=== PATIENT | female | born 1960 | race Caucasian/White ===

== ENCOUNTER 2023-09-20 16:59 | Emergency (ER) | payer MEDICARE, OTHER, SELFPAY ==
[2023-09-20 17:00] VITALS: BMI 22.3
[2023-09-20 17:07] VITALS: BP 113/70
[2023-09-20 17:28] LABS: % Basophils 0.3 % (0-2); % Immature Granulocytes 0.3 % (0-0.5); % Lymphocytes 4.2 % (20.5-51.1); % Monocytes 7.8 % (1.7-9.3); % Neutrophils 87.4 % (42.2-75.2); Absolute Lymphocytes 0.5 10^3/uL (1.2-3.4); Absolute Monocytes 0.9 10^3/uL (0.1-0.6); Absolute Neutrophils 10.1 10^3/uL (1.4-6.5); Hematocrit 36.6 % (37.0-47.0); Hemoglobin 12.5 g/dL (12.0-16.0); Mean Corp Hgb Conc. 34.2 g/dL (33.0-37.0); Mean Corpuscular Hgb 30.6 pg (27.0-31.0); Mean Corpuscular Volume 89.7 fL (81.0-99.0); Mean Platelet Volume 9.2 fL (7.4-10.4); Nucleated Red Blood Cells % 0 %; Platelet Count 280 10^3/uL (130-400); Red Blood Cell Count 4.08 10^6/uL (4.20-5.40); Red Cell Dist. Width 14.2 % (11.5-14.5); White Blood Cell Count 11.6 10^3/uL (4.8-10.8)
[2023-09-20 17:52] LABS: ALT (SGPT) 22 U/L (0-35); AST (SGOT) 25 U/L (14-36); Albumin 4.3 g/dl (3.5-5.0); Alkaline Phosphatase 57 U/L (38-126); Blood Urea Nitrogen 15 mg/dl (7-17); Calcium 9.3 mg/dl (8.4-10.2); Carbon Dioxide 22 mmol/L (22-30); Chloride 101 mmol/L (98-107); Glucose 134 mg/dl (70-99); Lipase 48 U/L (23-300); Potassium 3.6 mmol/L (3.5-5.1); Sodium 130 mmol/L (135-145); Total Bilirubin 1.2 mg/dl (0.2-1.3); Total Protein 6.8 g/dl (6.3-8.2); eGFR > 60.00
[2023-09-20 19:38] VITALS: BP 109/58
[2023-09-20] MEDS: NSS 1000 IV (19:39)
[2023-09-20] MEDS: ZOFRAN 4 MG IV (19:39)
[2023-09-20 19:40] VITALS: BP 107/59
--- NOTE | 2023-09-20 19:40 | ED.GENMED ---
History of Present Illness
General
Chief Complaint: Abdominal Pain
Time Seen by Provider: 09/20/23 18:34
Travel History
Have you had any contact with someone who has COVID-19?: No
Do you have any symptoms of coronavirus? Fever > 100 degrees, chills, cough, shortness of breath, sore throat, loss of taste or smell, muscle aches, or headache?: No
History of Present Illness
History of Present Illness:
63-year-old female with no significant past medical history presents to the emergency department for evaluation of nausea and vomiting as well as lower abdominal cramping began last night but worsening today. She is unable to tolerate any fluids
today. Does report tactile fevers and chills, no hematemesis or hematochezia. He did have a regular bowel movement today. No history of intra-abdominal surgery.
Review of Systems
Review of Systems
Allergies reviewed?: Yes
All Other Systems: ROS reviewed and negative except as documented in HPI and ROS
Phy Exam
Physical Exam
Physical Exam:
GEN: Well appearing, NAD, WDWN
HEENT: Oral mucosa moist, no scleral icterus
Cardiac: Regular rate
Lung: No respiratory distress, no tachypnea
Abdomen: Soft, diffusely tender to all 4 quadrants without focality, rigidity or peritoneal signs
MSK: No gross deformity or injuries
Skin: Good color, no pallor or jaundice, no rashes
Neuro: AO x3, moves all extremities freely
Psych: Calm, cooperative
Course
Orders/Labs/Results
Orders:
Orders
09/20/23 17:18
Complete Blood Count/With Diff Urgent
Comprehensive Metabolic Panel Urgent
Lipase Urgent
09/20/23 19:23
0.9% Sodium Chloride 1000 ml [Nss] 1,000 ml IV BOLUS
Ondansetron Injectable [Zofran] 4 mg IV NOW STA
09/20/23 21:11
Ketorolac [Toradol] 15 mg IV NOW STA
Abnormal Lab Results
09/20/23
17:18
WBC 11.6 H 10^3/uL
(4.8-10.8)
RBC 4.08 L 10^6/uL
(4.20-5.40)
Hct 36.6 L %
(37.0-47.0)
Absolute Neuts (auto) 10.1 H 10^3/uL
(1.4-6.5)
Absolute Lymphs (auto) 0.5 L 10^3/uL
(1.2-3.4)
Absolute Monos (auto) 0.9 H 10^3/uL
(0.1-0.6)
Neutrophils % 87.4 H %
(42.2-75.2)
Lymphocytes % 4.2 L %
(20.5-51.1)
Sodium 130 L mmol/L
(135-145)
Creatinine 0.5 L mg/dL
(0.6-1.0)
Glucose 134 H mg/dl
(70-99)
09/20/23 17:18
09/20/23 17:18
Vital Signs
Initial and Last Documented VS:
Initial Vital Signs
Temp Pulse Resp BP Pulse Ox
98.9 F 89 18 113/70 97
09/20/23 17:07 09/20/23 17:07 09/20/23 17:07 09/20/23 17:07 09/20/23 17:07
Last Documented Vital Signs
Temp Pulse Resp BP Pulse Ox
99.9 F 89 18 114/59 99
09/20/23 19:35 09/20/23 17:07 09/20/23 17:07 09/20/23 21:00 09/20/23 21:15
MDM/Problems Addressed
MDM/Problems Addressed:
Abdominal exam is not suggestive of acute surgical pathology. Likely acute self-limited viral syndrome. Patient was given IV fluids and antiemetics and was able to tolerate p.o. fluids without difficulty. Her pain did improve with
anti-inflammatories. Do not feel there is any indication for CT at this time. Discussed supportive care and return parameters
*Critical Care Note
Total Time (30-74mins, 75-104mins- exclusive of procedures): Not Applicable
ED Attending Note
-
Portions of this chart may have been created with voice recognition software.� Occasional wrong word or��sound alike� substitutions may have occurred due to the inherent limitations of voice recognition software.
Discharge Plan
Departure
Patient Disposition: Home (Routine Discharge)
Date of Disposition: 09/20/23
Time of Disposition: 22:04
Patient with high blood pressure during this ER visit?: No
Discharge Problem:
Nausea and vomiting
Instructions: Nausea and Vomiting, Adult (DC)
Prescriptions:
New
ondansetron 4 mg tablet,disintegrating
4 mg PO TIDPRN PRN (Reason: nausea/vomiting) Qty: 10 0RF
Referrals:
Yair Mata, [Family Provider] -
Activity Restrictions/Additional Instructions:
If your pain worsens, especially if nausea and vomiting is improving, return to the ER for re-evaluation
Interventions
Interventions:
*Risk Screen - Suicide Last Done: 09/20/23 17:07
*General Assessment Last Done: 09/20/23 17:07
*Neglect/Abuse Screening Last Done: 09/20/23 17:07
ED- Fall Risk Assessment Last Done: 09/20/23 19:22
*ED COVID-19 Vaccine History Last Done: 09/20/23 17:07
*Nursing Disposition Last Done: 09/20/23 22:13
PU-Bohfid-Mcasimlizj Assessment Last Done: 09/20/23 19:22
Discharge Date and Time
Discharge Date/Time: 09/20/23 22:14
Print Language: BERMUDIAN
[2023-09-20 20:00] VITALS: BP 118/64
[2023-09-20 21:00] VITALS: BP 114/59
[2023-09-20] MEDS: TORADOL 15 MG IV (21:21)
== END 2023-09-20 22:14 | disposition home or self-care (01) ==
LOC: EMR 16:59
PROVIDERS: EMERGENCY PHYSICIAN Student in an Organized Health Care Education/Training Program; FAMILY PHYSICIAN Student in an Organized Health Care Education/Training Program
DX: R11.2 Nausea with vomiting, unspecified (principal); R10.30 Lower abdominal pain, unspecified; R50.9 Fever, unspecified
CPT/HCPCS: 99284; 96374; 96375; 96361; 80053; 83690; 85025

== ENCOUNTER 2023-09-22 10:11 | Inpatient (IN) | payer MEDICARE, OTHER, SELFPAY ==
[2023-09-21 13:42] VITALS: BP 107/58; BMI 24.6
[2023-09-21 14:12] LABS: Hematocrit 34.9 % (37.0-47.0); Hemoglobin 11.9 g/dL (12.0-16.0); Mean Corp Hgb Conc. 34.1 g/dL (33.0-37.0); Mean Corpuscular Hgb 30.1 pg (27.0-31.0); Mean Corpuscular Volume 88.4 fL (81.0-99.0); Mean Platelet Volume 9.3 fL (7.4-10.4); Nucleated Red Blood Cells % 0 %; Platelet Count 252 10^3/uL (130-400); Red Blood Cell Count 3.95 10^6/uL (4.20-5.40); Red Cell Dist. Width 14.6 % (11.5-14.5); Urine Albumin Trace (Neg - Trace); Urine Bilirubin Negative (Negative); Urine Character Slightly Cloudy (Clear); Urine Color Yellow; Urine Glucose Negative (Negative); Urine Ketone 2+ (Negative); Urine Leukocyte 2+ (Negative); Urine Nitrite Negative (Negative); Urine Occult Blood Trace (Negative); Urine Urobilinogen Negative (Neg - 1+); White Blood Cell Count 13.1 10^3/uL (4.8-10.8)
[2023-09-21 14:25] LABS: ALT (SGPT) 19 U/L (0-35); AST (SGOT) 24 U/L (14-36); Albumin 3.8 g/dl (3.5-5.0); Alkaline Phosphatase 50 U/L (38-126); Blood Urea Nitrogen 15 mg/dl (7-17); Calcium 8.9 mg/dl (8.4-10.2); Carbon Dioxide 25 mmol/L (22-30); Chloride 100 mmol/L (98-107); Estimated Creatinine Clearance 71 ml/min; Glucose 102 mg/dl (70-99); Lipase 39 U/L (23-300); Potassium 4.2 mmol/L (3.5-5.1); Sodium 129 mmol/L (135-145); Total Bilirubin 1.3 mg/dl (0.2-1.3); Total Protein 6.4 g/dl (6.3-8.2); eGFR > 60.00
[2023-09-21 14:26] LABS: Urine Bacteria Few (Negative); Urine Mucus Few; Urine White Cell 16-20 /HPF (0-5)
[2023-09-21 14:53] LABS: Absolute Neutrophils -Man Diff 11.3 10^3/uL (1.4-6.5); Band Neutrophils 14 % (0-3); Lymphocytes 10 % (20-51); Monocytes 3 % (2-9); Normal RBC Morphology Yes; Platelets Checked YES; Segmented Neutrophils 73 % (42-75)
[2023-09-21 14:54] LABS: Total Cells Counted 100
--- NOTE | 2023-09-21 15:58 | ED.GENMED ---
History of Present Illness
General
Chief Complaint: Abdominal Pain
Source: patient
Exam Limitations: none
Time Seen by Provider: 09/21/23 15:39
Nursing documentation reviewed up to this point in time: agreed with
Travel History
Have you had any contact with someone who has COVID-19?: No
Do you have any symptoms of coronavirus? Fever > 100 degrees, chills, cough, shortness of breath, sore throat, loss of taste or smell, muscle aches, or headache?: No
History of Present Illness
History of Present Illness:
Patient is a 63-year-old female who presents to the ER for evaluation. Patient started with nausea and dry heaves on night, 2 days ago and then yesterday vomited several times. She was seen here last night and had blood work and fluids
but comes back today complaining of continued pain. She complains of bloating and generalized diffuse abdominal pain she. She has been able to drink fluids today. She did move her bowels Saturday morning.
Review of Systems
Review of Systems
Allergies reviewed?: Yes
All Other Systems: ROS reviewed and negative except as documented in HPI and ROS
Constitutional: Reports no symptoms; Denies fever
Respiratory: Reports no symptoms
Cardiac: Reports no symptoms
ABD/GI: Reports abdominal pain and other (nausea and vomiting x2 d improved now )
: Reports no symptoms; Denies flank pain
Musculoskeletal: Reports no symptoms
Skin: Reports no symptoms
Neurological: Reports no symptoms
Hematologic/Lymphatic: Reports no symptoms
Psychiatric: Reports no symptoms
Phy Exam
General Physical Exam
General Presentation: no apparent distress
General age: appears stated age
General Skin: warm and dry
General Habitus: normal
General Mental: alert
Gastrointestinal Exam
Gastrointestinal Exam: soft and other (abd tender throughout generalized diffuse tenderness)
Neurological Exam
Neurological Exam: alert and oriented x3
[place] Coma Scale
Eye Opening: Spontaneous
Verbal Response: Oriented
Motor Response: Obeys Commands
GCS Total Score: 15
Musculoskeletal Exam
Musculoskeletal Exam: full ROM
Skin Exam
Skin Exam: normal color and warm/dry
Psychiatric Exam
Psychiatric Exam: normal mood/affect
Course
Orders/Labs/Results
Orders:
Orders
09/21/23 13:57
Complete Blood Count/With Diff Urgent
Comprehensive Metabolic Panel Urgent
Lipase Urgent
Manual Differential Urgent
Urinalysis Reflex To Culture Urgent
Date Specimen was Collected: 09/21/23
Time Specimen was Collected: 13:45
Urine Microscopic Reflex Cult Urgent
Urine Culture Urgent
GABRIELA Source: U
Specimen Description:
Date Specimen was Collected: 09/21/23
Time Specimen was Collected: 13:45
09/21/23 16:07
0.9% Sodium Chloride 1000 ml [Nss] 1,000 ml IV BOLUS
09/21/23 16:08
Iohexol [Omnipaque] See Protocol PO NOW STA
Ondansetron Injectable [Zofran] 4 mg IV NOW STA
09/21/23 16:09
CT Abd/pel W Iv And Oral Contr Urgent
Comment:
Reason For Exam: abd pain
09/21/23 17:21
Ketorolac [Toradol] 15 mg IV NOW STA
09/21/23 20:12
Piperacillin/Tazo 3.375 Gram [Zosyn] 3.375 gram in 50 ml IV NOW
Abnormal Lab Results
09/21/23
13:57
WBC 13.1 H 10^3/uL
(4.8-10.8)
RBC 3.95 L 10^6/uL
(4.20-5.40)
Hgb 11.9 L g/dL
(12.0-16.0)
Hct 34.9 L %
(37.0-47.0)
RDW 14.6 H %
(11.5-14.5)
Abs Neuts (Manual) 11.3 H 10^3/uL
(1.4-6.5)
Band Neutrophils 14 H %
(0-3)
Lymphocytes (Manual) 10 L %
(20-51)
Sodium 129 L mmol/L
(135-145)
Creatinine 0.5 L mg/dL
(0.6-1.0)
Glucose 102 H mg/dl
(70-99)
Urine Ketones 2+ A
(Negative)
Ur Occult Blood Reflex Trace A
(Negative)
Leukocyte Esterase Rfl 2+ A
(Negative)
Urine RBC 3-6 A /HPF
(0-2)
Urine WBC (Reflex) 16-20 A /HPF
(0-5)
Urine Bacteria (Reflex) Few A
(Negative)
09/21/23 13:57
09/21/23 13:57
Vital Signs
Initial and Last Documented VS:
Initial Vital Signs
Temp Pulse Resp BP Pulse Ox
100.1 F 95 16 107/58 98
09/21/23 13:42 09/21/23 13:42 09/21/23 13:42 09/21/23 13:42 09/21/23 13:42
Last Documented Vital Signs
Temp Pulse Resp BP Pulse Ox
100.1 F 95 16 107/58 98
09/21/23 13:42 09/21/23 13:42 09/21/23 13:42 09/21/23 13:42 09/21/23 13:42
MDM/Problems Addressed
Differential Diagnosis Includes:
Not limited to gastroenteritis obstruction diverticulitis appendicitis
MDM/Problems Addressed:
Patient is a 63-year-old female who presents to the ER for evaluation. She has had abdominal pain nausea vomiting since yesterday was seen here yesterday for nausea vomiting abdominal cramping discharged with nausea and vomiting. She reports the
nausea has improved but she continues to have abdominal pain. She has diffuse tenderness on exam denies any fever she is nontoxic-appearing CAT scan however does show acute appendicitis with no associated perforation or abscess this is secondary
associated distal ileitis with partial small bowel structure.
Patient takes Lexapro only no other medical history but does not have a family doctor and does not go for routine screenings. wbc 13.1 hemoglobin minimally low at 11.9 sodium low at 129.
Case discussed with surgery Dr. Bolton on ca will admit to his service.
*Radiology
Radiology exam reviewed: radiology read reviewed
*Pulse Oximetry
Patient hypoxic: no
*Critical Care Note
Total Time (30-74mins, 75-104mins- exclusive of procedures): Not Applicable
Data Reviewed
Review of Other/Old Records Reveals: Other (ED visit from yesterday )
ED Attending Note
-
Portions of this chart may have been created with voice recognition software.� Occasional wrong word or��sound alike� substitutions may have occurred due to the inherent limitations of voice recognition software.
Discharge Plan
Departure
Patient Disposition: Admit
Date of Disposition: 09/21/23
Time of Disposition: 20:08
Admit to: Med/Surg
Admit to doctor: Che
Presentation/result/management discussed w/ accepting MD/DO: surgery
Patient with high blood pressure during this ER visit?: No
Condition: Fair
Covid-19: Not Applicable
Discharge Problem:
Acute appendicitis, partial small bowel obstruction, Acute hyponatremia
Prescriptions:
No Action
ondansetron 4 mg tablet,disintegrating
4 mg PO TIDPRN PRN (Reason: nausea/vomiting) Qty: 10 0RF
Referrals:
Yair Mata, [Family Provider] -
Interventions
Interventions:
*Risk Screen - Suicide Last Done: 09/21/23 13:42
*General Assessment Last Done: 09/21/23 16:25
*Neglect/Abuse Screening Last Done: 09/21/23 13:42
ED- Fall Risk Assessment Last Done: 09/21/23 13:42
*ED COVID-19 Vaccine History Last Done: 09/21/23 13:42
WB-Mxqmze-Qmddprtxsq Assessment Last Done: 09/21/23 16:26
Discharge Date and Time
Print Language: NEPALI
[2023-09-21] MEDS: ZOFRAN 4 MG IV (16:21)
[2023-09-21] MEDS: NSS 1000 IV (16:21)
[2023-09-21] MEDS: OMNIPAQUE 50 ML PO (16:21)
[2023-09-21] MEDS: TORADOL 15 MG IV (17:27)
[2023-09-21 20:14] VITALS: BP 108/95
[2023-09-21] MEDS: ZOSYN 50 IV (20:16)
--- NOTE | 2023-09-21 20:59 | HPS.HSE ---
Addendum entered and electronically signed by Leland Bolton MD 09/22/23 07:34:
Patient seen and examined independently.
Patient is a 63 yo F with a PMH of depression/anxiety who presented to the hospital with persistent RLQ abdominal pain. She initially presented to the ER on (09/18) with similar more mild symptoms. Labs were normal at that time and she
was ultimately discharged with a diagnosis of 'nausea and vomiting'. Her symptoms persisted prompting 3 presentation to the ED. She reports severe RLQ abdominal pain. Associated nausea and vomiting. Associated low-grade fevers, no chills. She
reports some looser stools following her CT with contrast, but denies any other fluctuations in GI function or issues with urination. No personal or family history of IBD or colon cancer.
Gen: NAD
Abd: soft, tender in RLQ, distended, tympanitic, non-peritoneal
Labs and imaging were reviewed.
Patient is a 63 yo F p/w acute appendicitis.
The natural history and pathophysiology of appendicitis was discussed. Anatomy was reviewed. CT scan imaging as relates to her appendix and small bowel was reviewed. Options for management including medical management with antibiotics versus
surgical management with appendectomy were considered and discussed. The pros and cons of both approaches was discussed. Specifically, we discussed failure of medical management, future episodes of appendicitis, and risks of appendectomy.
Jam would like to proceed with surgery.
Plan for a laparoscopic appendectomy. The procedure itself, as well as the risks, benefits, and alternatives was discussed. Specifically, we discussed the risks of bleeding, infection, injury to surrounding structures (bowel, bladder), staple line
leak, need for lumbar operation. Typical postprocedural recovery was discussed. All questions answered. Consent signed.
-- Laparoscopic appendectomy
-- NPO, IVF
-- Antibiotics: Zosyn
-- Pain control: Tylenol, IV Dilaudid as needed
Original Note:
Family Physician
-
Family Physician: Yair Mata DO
Chief Complaint
-
abd pain, nausea/vomiting
History of Present Illness
Patient is a 63-year-old female with hx depression /anxiety who presents to the ER for evaluation for n/v and diffuse abd pain. Patient started with nausea and dry heaves on night, 2 days ago and then yesterday vomited several times. She
was seen here last night(sat) and had blood work and fluids but comes back today complaining of continued pain. She complains of bloating and generalized diffuse abdominal pain. She has been able to drink fluids today. She did move her bowels
Saturday morning normally.
While in room with pt she had 2 BM post contrast.
Abd CT scan: IMPRESSION:
1). Acute appendicitis without associated perforation or abscess
2). Secondary associated distal ileitis with partial small bowel obstruction
3). Edema in the mesentery, small volume free fluid in the pelvis and pericolonic inflammatory stranding in the sigmoid colon
WBC 13 with bandemia
NA 129 (130 last night)
Medical History
Past Medical History
Past Medical History: Reports Psychiatric (depression anxiety)
Past Surgical History: Reports Other (breast lump removal (benign))
Social History
Tobacco: Non-smoker
Alcohol: None
Drug: None
Personal: Single
Living: Alone
Family History
Family History: Not pertinent
Allergies / Home Medications
Allergies reflects when Allergies were last updated in [facility].
Home Medications with original date entered in [facility]
Allergy/Medication List:
Allergies
Allergy/AdvReac Type Severity Reaction Status Date / Time
No Known Allergies Allergy Verified 09/21/23 13:42
Home Medications
ondansetron 4 mg disintegrating tablet 4 mg PO TIDPRN PRN nausea/vomiting #10 tabs 09/20/23
lexapro 5 mg daily
Review of Systems
-
History Source: Patient
A 12 point ROS was completed and negative except as noted: Yes
Constitutional: Reports No Symptoms
EENT: Reports No Symptoms
Respiratory: Reports No Symptoms
Cardiac: Reports No Symptoms
Abdomen/GI: Reports Abdominal Pain (pain 5/10), Nausea and Vomiting
: Reports No Symptoms
Musculoskeletal: Reports No Symptoms
Skin: Reports No Symptoms
Endocrine: Reports No Symptoms
Hematologic/Lymphatic: Reports No Symptoms
Psych: Reports No Symptoms
Physical Exam
Vital Signs
Vital Signs
Temp Pulse Resp BP Pulse Ox
99.1 F 78 16 108/95 95
09/21/23 20:14 09/21/23 20:14 09/21/23 20:14 09/21/23 20:14 09/21/23 20:54
Physical Exam
General: Well Developed, Well Nourished, No Apparent Distress, Comfortable and Pain (pain 5/10)
HEENT: NormoCephalic, Moist mucous membranes and Good Dentition
Respiratory: Clear
Cardiac: S1/S2 and Regular Rhythm
Breast: Deferred by me
GI: Tender (diffuse abd pain, RLQ more tender) and Distended (moderately)
Rectal: Deferred by Provider
Genito-urinary: Deferred by me
Skin: Warm and Dry
Neuro: Awake, Oriented, AO x 3, No Motor Deficits and Nonfocal/grossly intact
Hematologic/Lymphatic: No Lymphadenopathy
Psych: Calm
Laboratory Results
-
09/21/23 13:57
09/21/23 13:57
Laboratory Results
Total Bilirubin 1.3 mg/dl (0.2-1.3) 09/21/23 13:57
AST 24 U/L (14-36) 09/21/23 13:57
ALT 19 U/L (0-35) 09/21/23 13:57
Alkaline Phosphatase 50 U/L (38-126) 09/21/23 13:57
Lipase 39 U/L (23-300) 09/21/23 13:57
Data Reviewed
-
CT Scan: Report Reviewed by me and Discussed with Physician
Lab Data: Discussed with Physician and Discussed with Patient
Impression/Plan
-
IMPRESSION:
Acute appendicitis w/o perforation
PLAN:
Admit to service of Dr Bolton
Med surg obs
#acute appendicitis w/o perforation or abscess
-CT abd also with ileitis and pSBO possibly due to inflammation of appendix
-Will keep NPO x few ice chips tonight then NPO x meds after midnight.
-cont zosyn iv q 6
-WBC 13 with bands--> cont to trend cbc
-pain control: tylenol, toradol, morphine prn
-nausea control
#hyponatremia (129)
-on lexapro (has not taken in 2 days)--> will continue to hold
-possibly from effects of SSRI vs dehydration (n/v x 2 days)
-NA 130 09/20/23--> baseline unknown
-cont to trend BMP
-consider fluid restriction when no longer NPO if NA remains low
DVT proph: scd for now
Full code
[2023-09-21 21:36] VITALS: BMI 26.3
[2023-09-21 21:44] VITALS: BP 118/58; BMI 25.8
[2023-09-21] MEDS: LR 1000 IV (21:51)
[2023-09-21] MEDS: MORPHINE SULFATE 2 MG IV (21:51)
[2023-09-22] VITALS (13 sets, daily range): BP systolic 93–113; BP diastolic 50–60
[2023-09-22] MEDS: ZOSYN 50 IV ×4 (02:20→20:11)
[2023-09-22] MEDS: TORADOL 15 MG IV (04:30)
[2023-09-22 05:57] LABS: % Basophils 0.4 % (0-2); % Eosinophils 0.1 % (0-6); % Immature Granulocytes 0.9 % (0-0.5); % Lymphocytes 3.6 % (20.5-51.1); % Monocytes 5.1 % (1.7-9.3); % Neutrophils 89.9 % (42.2-75.2); Absolute Basophils 0.1 10^3/uL (0-0.2); Absolute Immature Granulocytes 0.1 10^3/uL (0-0.05); Absolute Lymphocytes 0.5 10^3/uL (1.2-3.4); Absolute Monocytes 0.7 10^3/uL (0.1-0.6); Absolute Neutrophils 11.4 10^3/uL (1.4-6.5); Hematocrit 33.5 % (37.0-47.0); Hemoglobin 11.1 g/dL (12.0-16.0); Mean Corp Hgb Conc. 33.1 g/dL (33.0-37.0); Mean Corpuscular Hgb 30.4 pg (27.0-31.0); Mean Corpuscular Volume 91.8 fL (81.0-99.0); Mean Platelet Volume 9.3 fL (7.4-10.4); Nucleated Red Blood Cells % 0 %; Platelet Count 233 10^3/uL (130-400); Red Blood Cell Count 3.65 10^6/uL (4.20-5.40); Red Cell Dist. Width 14.6 % (11.5-14.5); White Blood Cell Count 12.7 10^3/uL (4.8-10.8)
[2023-09-22] MEDS: LR 1000 IV (06:12)
[2023-09-22 06:32] LABS: ALT (SGPT) 12 U/L (0-35); AST (SGOT) 19 U/L (14-36); Albumin 3.1 g/dl (3.5-5.0); Alkaline Phosphatase 66 U/L (38-126); Blood Urea Nitrogen 12 mg/dl (7-17); Calcium 9.1 mg/dl (8.4-10.2); Carbon Dioxide 19 mmol/L (22-30); Chloride 101 mmol/L (98-107); Estimated Creatinine Clearance 71 ml/min; Glucose 82 mg/dl (70-99); Potassium 3.1 mmol/L (3.5-5.1); Sodium 131 mmol/L (135-145); Total Bilirubin 1.1 mg/dl (0.2-1.3); Total Protein 5.5 g/dl (6.3-8.2); eGFR > 60.00
--- NOTE | 2023-09-22 06:40 | PTCARENOTE ---
Aprox 2134 last night pt arrived from ED. Pt able to ambulate into room unassisted. Pt admission and assessment done. Pt to be NPO after midnight with IVF/IV abx. Pt instructed to ring for assistance.
--- NOTE | 2023-09-22 07:34 | W.SUR.PREOP ---
Pre-Operative Surgical Note
-
I have examined this patient prior to the performance of the scheduled procedure.
The patient's condition is unchanged from the time of the current History and
Physical and the patient is able to undergo the scheduled procedure.
--- NOTE | 2023-09-22 09:49 | CM ---
Reviewed the chart notes. Patient scheduled for OR today for appendectomy. The patient resides alone in an independent apartment. The patient uses no DME/VN/SNF. CM continues to be available to patient/family and is monitoring medical plan for
needs at discharge.
Plan: Discharge to home when medically stable. No needs anticipated.
--- NOTE | 2023-09-22 10:15 | W.IMMPOSTOP ---
Addendum entered and electronically signed by Leland Bolton MD 09/22/23 10:25:
[facility]#[id number]
Original Note:
Surgical Immed Post Op Note
-
Primary Surgeon: Che
Assisting Surgeon: None
Pre-op Diagnosis: Acute appendicitis
Post-op Diagnosis: Acute appendicitis
Procedure Performed: Laparoscopic appendectomy
Anesthesia Type: General
Specimen / Cultures:
1. Appendix
Estimated Blood Loss: 7 cc
Complications: None
Operative Findings:
1. Severe perforated appendicitis with feculent and purulent contamination throughout abdomen
2. Base healthy taken with take load stapler, mesentery with Ligasure
3. Suction and local irrigation throughout the abdomen
4. 19 Fr Randy drain into pelvis and RIGHT colic gutter overlying stapler line
Plan:
-- NPO until ROBF, NGT if nausea or emesis
-- Abx for 10-14 days
[2023-09-22] MEDS: NSS 1000 IV ×2 (10:43→20:14)
[2023-09-22] MEDS: NSS (PRESERVATIVE FREE) 10 ML IV (11:28)
[2023-09-22] MEDS: PROTONIX IV 40 MG IV (11:28)
[2023-09-22] MEDS: ZOFRAN 4 MG IV (15:35)
[2023-09-22] MEDS: LOVENOX 40 MG SC (17:07)
--- NOTE | 2023-09-22 18:13 | PTCARENOTE ---
Received patient from PACU via bed around 1100 in stable condition. MORRO to llq with large amount of serous fluid. Denies pain. Call durham in reach.
[2023-09-23] MEDS: ZOSYN 50 IV ×4 (02:33→19:50)
[2023-09-23] MEDS: TORADOL 10 MG IV ×3 (03:00→17:48)
[2023-09-23 03:34] VITALS: BP 102/54
[2023-09-23 03:40] VITALS: BP 130/66
[2023-09-23] MEDS: NSS 1000 IV ×2 (04:55→15:39)
[2023-09-23 07:25] VITALS: BP 102/51
[2023-09-23 08:13] LABS: Hematocrit 31.5 % (37.0-47.0); Hemoglobin 10.7 g/dL (12.0-16.0); Mean Corpuscular Hgb 30.9 pg (27.0-31.0); Mean Platelet Volume 10.2 fL (7.4-10.4); Platelet Count 268 10^3/uL (130-400); Red Blood Cell Count 3.46 10^6/uL (4.20-5.40); Red Cell Dist. Width 15.1 % (11.5-14.5)
--- NOTE | 2023-09-23 08:17 | W.PN.GS2 ---
Addendum entered and electronically signed by Bernardo Gil MD 09/23/23 08:43:
I saw and examined the patient independently.
The resident's note was reviewed and I agree with the note, assessment and plan except where noted below.
Comment:
63-year-old female POD #1 status post laparoscopic appendectomy for perforated appendicitis. Expected ileus, otherwise doing well.
Okay for sips of clears, meds.
Continue IV fluids.
Continue antibiotics x 7 days.
Tylenol, Toradol, narcotics as needed.
Will trend labs.
MORRO to bulb suction.
SCDs, DVT prophylaxis, out of bed and ambulate.
Original Note:
Today's Communication / Plan
-
Continue antibiotics
Continue IV fluids
Clear liquids
Assessment / Plan
-
63-year-old female with no significant past medical history, underwent laparoscopic appendicectomy. Today is her postoperative day 1
#Acute appendicitis with perforation, s/p laparoscopic appendicectomy
POD #1
-Continue antibiotics, Zosyn�day 2
-Pain control-acetaminophen, Toradol as needed
-Trend WBC
-Monitor MORRO drain output
# Postoperative ileus
-Patient did not pass flatus
-On clear liquids, continue
-Continue IV fluids
# PPI prophylaxis with Protonix
#Zofran as needed
#DVT prophylaxis�SCDs
Subjective Data
-
Date of Service: September 23, 2023
Patient reports having diffuse abdominal pain, did not pass flatus. No acute overnight events. She reports having a bowel movement in the morning today passing contrast, loose stools, was continent. Reports having incontinent stools earlier. No
fever/chills, nausea, vomiting.
Objective Data
-
Intake and Output
09/22/23 09/23/23 09/24/23
06:59 06:59 06:59
Intake Total 2555 / 2555
Output Total 1580 / 1580
Balance 975 / 975
Intake:
IV fluids (Total) 2355 / 2355
normosol 75 / 75
IV piggybacks 200 / 200
Output:
Drain Output (Total) 430 / 430
Left Abdomen Peterson-Ye 430 / 430
Urine, Voided 1150 / 1150
Other:
Number of approximated MODERATE 1
amounts of urine
Vital Signs
Temp Pulse Resp BP Pulse Ox
98.0 F 64 17 102/51 95
09/23/23 07:25 09/23/23 07:25 09/23/23 07:25 09/23/23 07:25 09/23/23 07:25
Calcium 9.1 mg/dl (8.4-10.2) 09/22/23 05:41
Total Bilirubin 1.1 mg/dl (0.2-1.3) 09/22/23 05:41
AST 19 U/L (14-36) 09/22/23 05:41
ALT 12 U/L (0-35) 09/22/23 05:41
Alkaline Phosphatase 66 U/L (38-126) 09/22/23 05:41
Total Protein 5.5 g/dl (6.3-8.2) L 09/22/23 05:41
Albumin 3.1 g/dl (3.5-5.0) L 09/22/23 05:41
Physical Exam
-
General : Patient appears comfortable, in no acute distress
CVS: S1, S2 normal
Resp: CTAB
Abdomen: distended, diffusely tender, tympanitic, MORRO drain-serous fluid, incisional wounds-healing, nonerythematous, nonpurulent.
[2023-09-23] MEDS: PROTONIX IV 40 MG IV (08:22)
[2023-09-23] MEDS: NSS (PRESERVATIVE FREE) 10 ML IV (08:22)
[2023-09-23 08:59] LABS: Blood Urea Nitrogen 16 mg/dl (7-17); Calcium 8.3 mg/dl (8.4-10.2); Carbon Dioxide 18 mmol/L (22-30); Chloride 105 mmol/L (98-107); Estimated Creatinine Clearance 71 ml/min; Glucose 91 mg/dl (70-99); Potassium 3.4 mmol/L (3.5-5.1); Sodium 132 mmol/L (135-145); eGFR > 60.00
[2023-09-23 11:10] VITALS: BP 127/71
--- NOTE | 2023-09-23 14:27 | CM ---
POD #1, sips of clear liquids and for meds, drain. Anticipate discharge to home with no additional skilled services.
[2023-09-23] MEDS: LOVENOX 40 MG SC (17:50)
[2023-09-23] MEDS: ZOFRAN 4 MG IV (17:57)
[2023-09-23] MEDS: MORPHINE SULFATE 2 MG IV (21:28)
[2023-09-23 22:44] VITALS: BP 100/56
[2023-09-24] MEDS: NSS 1000 IV (00:26)
[2023-09-24] MEDS: ZOSYN 50 IV ×4 (02:14→20:07)
[2023-09-24] MEDS: MORPHINE SULFATE 2 MG IV (04:58)
[2023-09-24 06:22] LABS: Hematocrit 31.7 % (37.0-47.0); Hemoglobin 10.7 g/dL (12.0-16.0); Mean Corp Hgb Conc. 33.8 g/dL (33.0-37.0); Mean Corpuscular Hgb 30.2 pg (27.0-31.0); Mean Corpuscular Volume 89.5 fL (81.0-99.0); Mean Platelet Volume 9.8 fL (7.4-10.4); Platelet Count 310 10^3/uL (130-400); Red Blood Cell Count 3.54 10^6/uL (4.20-5.40); White Blood Cell Count 10.7 10^3/uL (4.8-10.8)
[2023-09-24 06:53] LABS: Blood Urea Nitrogen 18 mg/dl (7-17); Calcium 7.9 mg/dl (8.4-10.2); Carbon Dioxide 20 mmol/L (22-30); Chloride 107 mmol/L (98-107); Estimated Creatinine Clearance 71 ml/min; Glucose 74 mg/dl (70-99); Potassium 3.2 mmol/L (3.5-5.1); Sodium 134 mmol/L (135-145); eGFR > 60.00
[2023-09-24 07:00] VITALS: BP 104/55
--- NOTE | 2023-09-24 07:42 | W.PN.GS2 ---
Addendum entered and electronically signed by Leland Bolton MD 09/24/23 14:25:
CDI:
Hypokalemia
Original Note:
Today's Communication / Plan
-
-- Limited clears, NPO if nausea
-- mIVF with K replete and Mg check
Assessment / Plan
-
Patient is a 63 yo F POD#2 s/p laparoscopic appendicectomy
Recovering well. Expected ileus (presented with pSBO)
-- Limited clears, NPO if nausea
-- mIVF with K replete and Mg check
-- Pain control: Tylenol, Toradol, IV Morphine PRN
-- Abx: Zosyn (07/17)
-- Continue MORRO drain, can DC on DC if benign
-- OOB/ambulate
-- DVT: Lovenox
-- GI: Protonix
Subjective Data
-
Date of Service: September 24, 2023
Feels improved today. Less pain. Reports an episode of nausea with morphine administration, no vomiting, no reflux or burping. Reports passing flatus, no BM. Afebrile. Ambulating. Voiding.
Objective Data
-
Intake and Output
09/23/23 09/24/23 09/25/23
06:59 06:59 06:59
Intake Total 2555 / 2555 2890 / 2890
Output Total 1580 / 1580 1165 / 1165
Balance 975 / 975 1725 / 1725
Intake:
IV fluids (Total) 2355 / 2355 2740 / 2740
normosol 75 / 75
IV piggybacks 200 / 200 150 / 150
Output:
Drain Output (Total) 430 / 430 390 / 390
Left Abdomen Peterson-Ye 430 / 430 390 / 390
Urine, Voided 1150 / 1150 775 / 775
Other:
Number of approximated SMALL 1
amounts of urine
Vital Signs
Temp Pulse Resp BP Pulse Ox
98.1 F 72 16 100/56 95
09/23/23 22:44 09/23/23 22:44 09/23/23 22:44 09/23/23 22:44 09/23/23 22:44
Lab Results
09/24/23 05:02
09/24/23 05:02
Calcium 7.9 mg/dl (8.4-10.2) L 09/24/23 05:02
Total Bilirubin 1.1 mg/dl (0.2-1.3) 09/22/23 05:41
AST 19 U/L (14-36) 09/22/23 05:41
ALT 12 U/L (0-35) 09/22/23 05:41
Alkaline Phosphatase 66 U/L (38-126) 09/22/23 05:41
Total Protein 5.5 g/dl (6.3-8.2) L 09/22/23 05:41
Albumin 3.1 g/dl (3.5-5.0) L 09/22/23 05:41
Physical Exam
-
Gen: NAD
Abd: soft, mild tenderness, distended, tympanitic, non-peritoneal, incisions c/d/i - no erythema, ecchymosis or drainage, MORRO serous with fibrinous debris
[2023-09-24] MEDS: NSS IV (08:14)
[2023-09-24] MEDS: NSS (PRESERVATIVE FREE) 10 ML IV (08:16)
[2023-09-24] MEDS: PROTONIX IV 40 MG IV (08:16)
[2023-09-24] MEDS: D5/0.45%NSS with KCL 40 MEQ 1000 IV (08:58)
--- NOTE | 2023-09-24 12:40 | PN.CDI ---
CDI
- -
CDI:
Physician Documentation Request
Admit Date: 09/22/23 10:11
Dear Doctor Che,
Clinical Indicators:
Patient admitted with acute perforated appendicitis; s/p Laparoscopic appendectomy and drainage of intraabdominal abscess 09/21.
09/23 KCL 40 meq added to IVF.
Potassium levels:
09/22/23 09/23/23 09/24/23
05:41 06:45 05:02
Potassium 3.1 L D 3.4 L 3.2 L
Based on the above, could you clarify in the progress notes, the appropriate diagnosis, if significant, that supports the above abnormalities and additional evaluation, monitoring and/or treatment rendered:
Hypokalemia
Abnormal lab values, clinically insignificant
Other, please specify
Use of terms such as suspected, likely, concern for, or probable (associated with a specific diagnosis that is being evaluated, monitored, or treated as if it exists) are acceptable and can be coded in the inpatient setting, when documented at the
time of discharge.
Thank you,
JAMAR Hendrix RN
CDI Specialist
available via tiger text
Please use your independent medical judgment in providing your response.
[2023-09-24] MEDS: TORADOL 15 MG IV ×2 (12:43→20:40)
--- NOTE | 2023-09-24 14:30 | CM ---
CM reviewed chart
Pt on clears and lauri remains
Anticipate plan for drain removal upon dc
Per nursing notes, pt ambulatory in her room
Discharge Disposition- anticipate home, no needs
[2023-09-24 15:00] VITALS: BP 108/57
[2023-09-24] MEDS: LOVENOX 40 MG SC (18:07)
[2023-09-24 19:00] VITALS: BP 128/74
[2023-09-25] MEDS: D5/0.45%NSS with KCL 40 MEQ 1000 IV ×2 (00:41→16:58)
[2023-09-25] MEDS: ZOSYN 50 IV ×4 (01:01→19:15)
[2023-09-25] MEDS: TORADOL 15 MG IV ×3 (04:04→19:15)
[2023-09-25 07:05] LABS: Hematocrit 33.1 % (37.0-47.0); Hemoglobin 11.3 g/dL (12.0-16.0); Mean Corp Hgb Conc. 34.1 g/dL (33.0-37.0); Mean Corpuscular Hgb 30.9 pg (27.0-31.0); Mean Corpuscular Volume 90.4 fL (81.0-99.0); Mean Platelet Volume 9.5 fL (7.4-10.4); Platelet Count 282 10^3/uL (130-400); Red Blood Cell Count 3.66 10^6/uL (4.20-5.40); Red Cell Dist. Width 14.3 % (11.5-14.5); White Blood Cell Count 8.5 10^3/uL (4.8-10.8)
[2023-09-25 07:34] LABS: Blood Urea Nitrogen 11 mg/dl (7-17); Calcium 7.8 mg/dl (8.4-10.2); Carbon Dioxide 24 mmol/L (22-30); Chloride 105 mmol/L (98-107); Estimated Creatinine Clearance 71 ml/min; Glucose 130 mg/dl (70-99); Potassium 3.5 mmol/L (3.5-5.1); Sodium 133 mmol/L (135-145); eGFR > 60.00
[2023-09-25 08:00] VITALS: BP 121/65
[2023-09-25] MEDS: PROTONIX IV 40 MG IV (08:40)
[2023-09-25] MEDS: NSS (PRESERVATIVE FREE) 10 ML IV (08:41)
--- NOTE | 2023-09-25 09:15 | W.PN.GS2 ---
Today's Communication / Plan
-
Plain film.
Okay to shower.
Will check a UA given reported cloudy urine.
Assessment / Plan
-
Patient is a 63 yo F POD#3 s/p laparoscopic appendicectomy. Recovering well. Expected ileus (presented with pSBO)
-- Clears, will get a plain film today.
-- mIVF with K replete and Mg check
-- Pain control: Tylenol, Toradol, IV Morphine PRN
-- Abx: Zosyn (08/14)
-- Continue MORRO drain, can DC on DC if benign
-- OOB/ambulate
-- DVT: Lovenox
-- GI: Protonix
Time Spent
Total Time Spent with Patient (in minutes): 20
Subjective Data
-
Date of Service: September 25, 2023
Interval Events:
No acute events overnight. Slept well. Pain Controlled. Denies Nausea/Vomiting, endorses cloudy urine and some burping, +bowel function. Tolerating diet.
Objective Data
-
Intake and Output
09/24/23 09/25/23 09/26/23
06:59 06:59 06:59
Intake Total 2890 / 2890 1880 / 1880
Output Total 1165 / 1165 1440 / 1440
Balance 1725 / 1725 440 / 440
Intake:
Oral fluids 80 / 80
IV fluids (Total) 2740 / 2740 1600 / 1600
IV piggybacks 150 / 150 200 / 200
Output:
Drain Output (Total) 390 / 390 590 / 590
Left Abdomen Peterson-Ye 390 / 390 590 / 590
Urine, Voided 775 / 775 850 / 850
Other:
Number of approximated SMALL 1
amounts of urine
Vital Signs
Temp Pulse Resp BP Pulse Ox
98.7 F 76 17 121/65 96
09/25/23 08:00 09/25/23 08:00 09/25/23 08:00 09/25/23 08:00 09/25/23 08:00
Lab Results
09/25/23 06:08
09/25/23 06:09
Calcium 7.8 mg/dl (8.4-10.2) L 09/25/23 06:09
Magnesium Cancelled 09/24/23 07:40
Total Bilirubin 1.1 mg/dl (0.2-1.3) 09/22/23 05:41
AST 19 U/L (14-36) 09/22/23 05:41
ALT 12 U/L (0-35) 09/22/23 05:41
Alkaline Phosphatase 66 U/L (38-126) 09/22/23 05:41
Total Protein 5.5 g/dl (6.3-8.2) L 09/22/23 05:41
Albumin 3.1 g/dl (3.5-5.0) L 09/22/23 05:41
Physical Exam
-
GENERAL/NEURO: Awake, Alert, no distress
CHEST: Unlabored breathing on RA
ABDOMEN: Soft, appropriately tender, distended, incisions clean dry and intact, MORRO with serous output.
--- NOTE | 2023-09-25 12:37 | CM ---
Addendum entered by Samina Spence RN 09/25/23 15:51:
IMM signed and placed on the chart.
Original Note:
Reviewed the chart notes. Diet remains clears. Continues with MORRO drain. Per note, MORRO drain may be able to be removed at d/c is benign. CM continues to be available to patient/family and is monitoring medical plan for needs at discharge.
Plan: Discharge plans will depend on the patient's progress. If MORRO drain d/c'd no needs. If MORRO drain remains at d/c then may benefit from VN services.
[2023-09-25 13:49] LABS: Urine Albumin Negative (Neg - Trace); Urine Bilirubin Negative (Negative); Urine Character Clear (Clear); Urine Color Yellow; Urine Glucose Negative (Negative); Urine Ketone Negative (Negative); Urine Leukocyte Negative (Negative); Urine Nitrite Negative (Negative); Urine Occult Blood Negative (Negative); Urine Urobilinogen Negative (Neg - 1+)
[2023-09-25 15:55] VITALS: BP 126/64
[2023-09-25] MEDS: LOVENOX 40 MG SC (17:50)
[2023-09-25 23:30] VITALS: BP 112/60
[2023-09-26] MEDS: D5/0.45%NSS with KCL 40 MEQ 1000 IV ×3 (01:04→21:33)
[2023-09-26] MEDS: ZOSYN 50 IV ×4 (01:04→19:41)
[2023-09-26] MEDS: NSS (PRESERVATIVE FREE) 10 ML IV (08:42)
[2023-09-26] MEDS: PROTONIX IV 40 MG IV (08:42)
--- NOTE | 2023-09-26 09:06 | W.PN.GS2 ---
Addendum entered and electronically signed by Zach Jackson MD 09/26/23 09:17:
pt seen and examined with ANALYTICS ARCHITECT
pt reports persistent but stable abd distention/bloating
passing some flatus and occasional loose/liquid stools
AFVSS
ABD: distended, mild incisional tenderness
MORRO with mostly serous fluid
A/P: s/p lap appy
maintain IVF, clear liquid diet awaiting further return of post op GI function
Zosyn
MORRO
Original Note:
Today's Communication / Plan
-
Continue clears
OOB/Ambulate
Assessment / Plan
-
Patient is a 63 yo F POD#4 s/p laparoscopic appendicectomy. Recovering well. Resolving ileus (presented with pSBO)
AFVSS
-- Continue clears
-- Pain control: Tylenol, Toradol, IV Morphine PRN
-- Abx: Zosyn (08/14)
-- Continue MORRO drain, anticipate removal prior to discharge
-- OOB/ambulate
-- DVT ppx: Lovenox
-- GI ppx: Protonix
Subjective Data
-
Date of Service: September 26, 2023
Patient seen and examined at bedside with Dr. Jackson. Denies n/v. Distention persists. Notes that she passed liquid green stool today with flatus.
Objective Data
-
Intake and Output
09/25/23 09/26/23 09/27/23
06:59 06:59 06:59
Intake Total 1880 / 1880 2800 / 2800
Output Total 1440 / 1440 2480 / 2480
Balance 440 / 440 320 / 320
Intake:
Oral fluids 80 / 80 840 / 840
IV fluids (Total) 1600 / 1600 1760 / 1760
IV piggybacks 200 / 200 200 / 200
Output:
Drain Output (Total) 590 / 590 380 / 380
Left Abdomen Peterson-Ye 590 / 590 380 / 380
Urine, Voided 850 / 850 2100 / 2100
Vital Signs
Temp Pulse Resp BP Pulse Ox
98.2 F 79 16 112/60 94
09/25/23 23:30 09/25/23 23:30 09/25/23 23:30 09/25/23 23:30 09/25/23 23:30
Lab Results
09/25/23 06:08
09/25/23 06:09
Calcium 7.8 mg/dl (8.4-10.2) L 09/25/23 06:09
Magnesium Cancelled 09/24/23 07:40
Total Bilirubin 1.1 mg/dl (0.2-1.3) 09/22/23 05:41
AST 19 U/L (14-36) 09/22/23 05:41
ALT 12 U/L (0-35) 09/22/23 05:41
Alkaline Phosphatase 66 U/L (38-126) 09/22/23 05:41
Total Protein 5.5 g/dl (6.3-8.2) L 09/22/23 05:41
Albumin 3.1 g/dl (3.5-5.0) L 09/22/23 05:41
Physical Exam
-
GENERAL/NEURO: Awake, Alert, no distress
CHEST: Unlabored breathing on RA
ABDOMEN: Soft, appropriately tender, distended, incisions clean dry and intact, MORRO with serous output.
[2023-09-26] MEDS: TORADOL 15 MG IV ×2 (09:25→16:33)
--- NOTE | 2023-09-26 10:49 | CM ---
Reviewed the chart notes. Diet remains clears. Continues with MORRO drain. Per note, MORRO drain may be able to be removed at d/c is benign. CM continues to be available to patient/family and is monitoring medical plan for needs at discharge.
Plan: Discharge plans will depend on the patient's progress. If MORRO drain d/c'd no needs. If MORRO drain remains at d/c then may benefit from VN services.
[2023-09-26 15:54] VITALS: BP 122/74
[2023-09-26] MEDS: LOVENOX 40 MG SC (17:17)
[2023-09-26 23:45] VITALS: BP 112/61
[2023-09-27] MEDS: ZOSYN 50 IV ×2 (01:19→08:36)
[2023-09-27 08:03] VITALS: BP 119/73
[2023-09-27 08:25] VITALS: BMI 25.8
[2023-09-27] MEDS: D5/0.45%NSS with KCL 40 MEQ 1000 IV (08:35)
[2023-09-27] MEDS: NSS (PRESERVATIVE FREE) 10 ML IV (08:36)
[2023-09-27] MEDS: PROTONIX IV 40 MG IV (08:36)
[2023-09-27] MEDS: TYLENOL PO (10:42)
--- NOTE | 2023-09-27 12:17 | W.PN.GS2 ---
Addendum entered and electronically signed by Yan Celeste MD 09/27/23 12:37:
I saw and examined the patient.
The Pharmacy Technician Infusion's note was reviewed and I agree with the note.
Comment: Improving. C/o bloating/belching but drinking soda. Passing flatus. Denies n/v. Clint clears. Exam approp, incisions cdi, drain serous; Adv to LRD, OK for DC home when tolerating, can pull drain prior to DC
Original Note:
Today's Communication / Plan
-
Advance diet
Assessment / Plan
-
Patient is a 63 yo F POD#5 s/p laparoscopic appendicectomy for perforated appendicitis. Recovering well. Resolving ileus (presented with pSBO)
AFVSS
-- Trial on LRD and follow for tolerance
-- Pain control: Tylenol, Tramadol, IV Morphine PRN
-- Abx: Zosyn (10/14), will transition to PO agent upon d/c
-- Continue MORRO drain, anticipate removal prior to discharge
-- OOB/ambulate
-- Stop IVF
-- DVT ppx: Lovenox
-- GI ppx: Protonix
Subjective Data
-
Date of Service: September 27, 2023
Patient seen and examined at bedside with Dr. Celeste. Denies n/v but with early fullness with clears. Some belching. Passing flatus and stools. Stools have been loose and green. Ambulating in room and halls.
Objective Data
-
Intake and Output
09/26/23 09/27/23 09/28/23
06:59 06:59 06:59
Intake Total 2800 / 2800 2820 / 2820
Output Total 2480 / 2480 2760 / 2760
Balance 320 / 320 60 / 60
Intake:
Oral fluids 840 / 840 800 / 800
IV fluids (Total) 1760 / 1760 1840 / 1840
IV piggybacks 200 / 200 180 / 180
Output:
Drain Output (Total) 380 / 380 360 / 360
Left Abdomen Peterson-Ye 380 / 380 360 / 360
Urine, Savage 950 / 950
Urine, Voided 2100 / 2100 1450 / 1450
Other:
Number of approximated SMALL 1
amounts of urine
Number of approximated MODERATE 2
amounts of urine
Vital Signs
Temp Pulse Resp BP Pulse Ox
98.0 F 74 16 119/73 98
09/27/23 08:03 09/27/23 08:03 09/27/23 08:03 09/27/23 08:03 09/27/23 08:03
Lab Results
09/25/23 06:08
09/25/23 06:09
Calcium 7.8 mg/dl (8.4-10.2) L 09/25/23 06:09
Magnesium Cancelled 09/24/23 07:40
Total Bilirubin 1.1 mg/dl (0.2-1.3) 09/22/23 05:41
AST 19 U/L (14-36) 09/22/23 05:41
ALT 12 U/L (0-35) 09/22/23 05:41
Alkaline Phosphatase 66 U/L (38-126) 09/22/23 05:41
Total Protein 5.5 g/dl (6.3-8.2) L 09/22/23 05:41
Albumin 3.1 g/dl (3.5-5.0) L 09/22/23 05:41
Physical Exam
-
GENERAL/NEURO: Awake, Alert, no distress
CHEST: Unlabored breathing on RA
ABDOMEN: Soft, appropriately tender, distended, incisions clean dry and intact, MORRO with serous output.
[2023-09-27] MEDS: TYLENOL 650 MG PO (12:42)
--- NOTE | 2023-09-27 14:41 | CM ---
Patient seen bedside, reports no needs to CM at this time. Per nurse, reports patient will have MORRO drain removed before discharge. CM will continue to follow for discharge planing needs.
Plan; home no needs.
[2023-09-27 15:01] VITALS: BP 120/60
--- NOTE | 2023-09-27 16:58 | W.DCSUMMARY ---
Discharge Summary
Discharge Data
Date of Admission: 09/22/23
Date of Discharge: 09/27/23
-
Pending Results: No
Hospital Course
This is a 63 yo female who presented through the ED with 2-3 days of RLQ pain. Exam and imaging both consistent with acute appendicitis. She was taken to the OR for laparoscopic appendectomy with severe perforated appendicitis with feculent and
purulent contamination throughout the abdomen noted intraoperatively. A drain was left in place after the procedure and removed prior to discharge. She did develop an ileus during her stay with resolution prior to discharge. Diet was able to be
advanced and well tolerated with passage of flatus and stool. She was discharged to home on a course of antibiotics for outpatient follow up in the coming weeks.
Discharge Plan
-
Patient Disposition: Home (Routine Discharge)
Discharge Diagnosis/Procedures: perforated appendicitis with laparoscopic appendectomy
Condition: Good
Diet: As tolerated and Low Fiber
Activity: No strenuous activity
Additional Activity: Do not lift more than 15 pounds for the next 2-3 weeks
Driving Restrictions: wait until off narcotics/comfortable twisting
Bathing Restrictions: OK to Shower
Wound Care: Ok to shower and rinse your incisions with soap and water. The glue over your incisions will flake off on its own in 2-3 weeks. Avoid picking or scrubbing off the glue. Cover the incision where your drain was with a dry gauze dressing
until drainage no longer present and a scab forms.
Activity Restrictions/Additional Instructions:
Call your surgeon if you have nuasea with vomiting, worsening abdominal pain, or a fever >100.5
Referrals:
Yair Mata DO [Family Provider] -
Leland Bolton MD [Active] - in two to four weeks
Prescriptions:
New
amoxicillin-pot clavulanate 875-125 mg tablet
1 tab PO Q12 Qty: 18 0RF
acetaminophen [acetaminophen] 325 mg tablet
650 mg PO Q4HPRN PRN (Reason: mild pain) Qty: 1 0RF
ibuprofen 200 mg tablet
400 - 600 mg PO Q6HPRN PRN (Reason: moderate pain) Qty: 1 0RF
oxycodone 5 mg tablet
5 mg PO Q4HPRN PRN (Reason: breakthrough/severe pain) Qty: 10 0RF
Continued
ondansetron 4 mg tablet,disintegrating
4 mg PO TIDPRN PRN (Reason: nausea/vomiting) Qty: 10 0RF
Lexapro
5 mg PO DAILY
Discharge Orders:
Discharge Patient (As Directed); Ordered 09/27/23
Ordered By: Cici Croft
Discharge Date and Time
Discharge Date/Time: 09/27/23 17:57
Print Language: NIGERIEN
[2023-09-27] MEDS: ZOSYN IV (17:04)
[2023-09-27] MEDS: LOVENOX 40 MG SC (17:27)
== END 2023-09-27 17:57 | disposition home or self-care (01) | DRG 398 ==
LOC: 2 SOUTH 10:11
PROVIDERS: Emergency Medicine; Nurse Practitioner Family; Surgery; ADMITTING PHYSICIAN Surgery; EMERGENCY PHYSICIAN Emergency Medicine; FAMILY PHYSICIAN Student in an Organized Health Care Education/Training Program
PROC: 0DTJ4ZZ Resection of Appendix, Percutaneous Endoscopic Approach (ICD-10-PCS; 2023-09-22)
DX: K35.33 Acute appendicitis with perforation, localized peritonitis, and gangrene, with abscess (principal); E87.1 Hypo-osmolality and hyponatremia; K56.51 Intestinal adhesions [bands], with partial obstruction; K56.7 Ileus, unspecified; K52.9 Noninfective gastroenteritis and colitis, unspecified; E87.6 Hypokalemia; F41.9 Anxiety disorder, unspecified
CPT/HCPCS: 88304; 74018; 74177; 80048; 80053; 81003; 81015; 83690; 83735; 85025; 85027; 87086; 96361; 96365; 96374; 96375; 99284; 99285; Q9967